=== PATIENT | female | born 1970 | race Two or more races ===

== ENCOUNTER 2019-09-01 07:02 | Emergency (ER) | payer OTHER ==
[2019-09-01 07:44] VITALS: BP 136/74
[2019-09-01 08:00] LABS: Influenza A Molecular Negative (Negative); Influenza B Molecular Negative (Negative)
--- NOTE | 2019-09-01 08:19 | UC ---
Throat Pain/Nasal Jose HPI - HPI Summary HPI Summary: The patient is a 49-year-old female that presents here with painful lip and intraoral lesions. She has a sore throat and it hurts to swallow. She has been able to take liquids. She has felt feverish. She has a mild intermittent cough. She has a mild headache. She has had some mild muscle aches. 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 She has never had intraoral lesions. She denies any recent illness. She states she has never been hospitalized. - History of Current Complaint Chief Complaint: UCGeneralIllness Stated Complaint: SORE THROAT Time Seen by Provider: 09/01/19 07:33 Hx Obtained From: Patient Hx Last Menstrual Period: 1 WEEK AGO Onset/Duration: Gradual Onset, Lasting Days Severity: Moderate Pain Intensity: 4 Pain Scale Used: 0-10 Numeric Cough: Nonproductive - and rare/"clearing throat Associated Signs & Symptoms: Positive: Fever - moshe - Epiglottits Risk Factors Epiglottis Risk Factors: Negative - Allergies/Home Medications Allergies/Adverse Reactions: Allergies Allergy/AdvReac Type Severity Reaction Status Date / Time No Known Allergies Allergy Verified 09/01/19 07:37 Home Medications: Home Medications ValACYclovir (*) [Valtrex 1 GM(*)] 1 gm PO BID #20 tab 09/01/19 [Rx] PMH/Surg Hx/FS Hx/Imm Hx Previously Healthy: Yes - Surgical History Surgical History: None - Family History Known Family History: Positive: Diabetes - Social History Alcohol Use: None Substance Use Type: None Smoking Status (MU): Never Smoked Tobacco - Immunization History Most Recent Tetanus Shot: 2006 Review of Systems All Other Systems Reviewed And Are Negative: Yes Constitutional: Positive: Fever - moshe, Chills Skin: Positive: Negative Eyes: Positive: Negative ENT: Positive: Sore Throat Respiratory: Positive: Cough - rare Cardiovascular: Positive: Negative Gastrointestinal: Positive: Negative Genitourinary: Positive: Negative Motor: Positive: Negative Neurovascular: Positive: Negative Musculoskeletal: Positive: Negative Neurological/Mental Status: Positive: Negative Psychological: Positive: Negative Physical Exam Triage Information Reviewed: Yes Appearance: Well-Appearing, No Pain Distress, Well-Nourished Vital Signs: Initial Vital Signs Temp 98 F 09/01/19 07:38 Pulse 70 09/01/19 07:38 Resp 16 09/01/19 07:38 BP 136/74 09/01/19 07:38 Pulse Ox 98 09/01/19 07:38 Vital Signs Reviewed: Yes Eyes: Positive: Conjunctiva Clear ENT: Positive: Hearing grossly normal, TMs normal, Uvula midline, Other - vesicular lesions on palate/vesicular lesions on lips and in nares. Negative: Nasal congestion, Nasal drainage, Tonsillar exudate, Trismus, Muffled voice, Hoarse voice, Sinus tenderness Dental: Positive: Other: - gingival uclerations/buccal vesicles Neck: Positive: Supple, Nontender, Enlarged Nodes @ - ant cervical Respiratory: Positive: Lungs clear, Normal breath sounds, No respiratory distress, No accessory muscle use Cardiovascular: Positive: RRR, No Murmur Abdominal Exam: Normal Musculoskeletal: Positive: ROM Intact, No Edema Neurological: Positive: Alert Psychological Exam: Normal Skin Exam: Other - see HHENT EXAM Diagnostics - Laboratory Lab Results: strep (-), influenza (-) Throat Pain/Nasal Course/Dx - Differential Dx/Diagnosis Provider Diagnosis: Herpes stomatitis, Herpes simplex labialis Discharge ED - Sign-Out/Discharge Documenting (check all that apply): Patient Departure All imaging exams completed and their final reports reviewed: No Studies - Discharge Plan Condition: Stable Disposition: HOME Prescriptions: ValACYclovir (*) [Valtrex 1 GM(*)] 1 gm PO BID #20 tab Patient Education Materials: Oral Herpes Simplex Virus Infections (ED), Gingivostomatitis (ED) Referrals: Lorin Michele DO [Primary Care Provider] - 5 Days Additional Instructions: blood work and results of lip swab are pending recheck for new or worsening symptoms if you have trouble taking fluids and feeling dehydrated I suggest you go to the ER - Billing Disposition and Condition Condition: STABLE Disposition: Home
[2019-09-01 10:28] LABS: ABS Eosinophils 0.1 10^3/ul (0-0.6); ABS Lymphocytes 1.7 10^3/ul (1.0-4.8); ABS Monocytes 0.6 10^3/ul (0-0.8); ABS Neutrophils 4.7 10^3/ul (1.5-7.7); Eosinophil % 1.1 %; Hematocrit 36 % (35-47); Hemoglobin 12.1 g/dL (12.0-16.0); Lymphocyte % 23.8 %; Mean Corpuscular HGB Conc 33 g/dL (31-36); Mean Corpuscular Hemoglobin 28 pg (27-31); Mean Corpuscular Volume 84 fL (80-97); Mean Platelet Volume 7.8 fL (7.4-10.4); Platelet Count 303 10^3/uL (150-450); Red Blood Count 4.32 10^6 /uL (3.70-4.87); Red Cell Distribution Width 15 % (10-15); White Blood Count 7.2 10^3/uL (3.5-10.8)
[2019-09-01 12:32] LABS: HIV 4th Generation Nonreactive (Nonreactive)
[2019-09-03 00:02] LABS: Herpes Source LIP
--- NOTE | 2019-09-03 08:26 | UC ---
- Progress Note Progress Note: Herpes PCR lip sample comes back from September 01, 2019. Is positive for HSV-1. Is negative for HSV-2. Patient was started on Valtrex. Nursing to call patient inform the patient of the results and let them know that Valtrex is the appropriate treatment. Course/Dx - Diagnoses Provider Diagnoses: Herpes stomatitis, Herpes simplex labialis Discharge ED - Sign-Out/Discharge Documenting (check all that apply): Patient Departure All imaging exams completed and their final reports reviewed: No Studies - Discharge Plan Condition: Stable Disposition: HOME Prescriptions: ValACYclovir (*) [Valtrex 1 GM(*)] 1 gm PO BID #20 tab Patient Education Materials: Oral Herpes Simplex Virus Infections (ED), Gingivostomatitis (ED) Referrals: Lorin Michele DO [Primary Care Provider] - 5 Days Additional Instructions: blood work and results of lip swab are pending recheck for new or worsening symptoms if you have trouble taking fluids and feeling dehydrated I suggest you go to the ER - Billing Disposition and Condition Condition: STABLE Disposition: Home
== END 2019-09-01 08:40 | disposition home or self-care (01) ==
LOC: UCEAST 07:02
DX: B00.2 Herpesviral gingivostomatitis and pharyngotonsillitis (principal); B00.1 Herpesviral vesicular dermatitis; R05 Cough; R51 Headache; M79.10 Myalgia, unspecified site
CPT/HCPCS: 36415; 85025; 87389; 87529; 87651; 99212; G0463